=== PATIENT | male | born 1970 | race Caucasian/White ===

== ENCOUNTER 2020-03-28 10:58 | Emergency (ER) | payer OTHER ==
[~2020-03-28] VITALS: Ht 182.9 cm; Wt 74.8 kg
[2020-03-28 11:28] LABS: Source, Urine Clean Catch
[2020-03-28 11:32] LABS: Bilirubin, Urine Neg (Neg); Blood, Urine 1+ (Neg); Glucose Qualitative, Urine Neg (Neg); Ketones, Urine Neg (Neg); Leukocyte Esterase, Urine 3+ (Neg); Nitrite, Urine Neg (Neg); Protein, Urine Neg (Neg); Specific Gravity, Urine 1.005 (1.003-1.022); Urobilinogen, Urine NORM (Normal)
[2020-03-28 11:52] LABS: Appearance, Urine Hazy (Clear); Color, Urine Yellow (P-Yellow)
[2020-03-28 11:57] LABS: Bacteria Few /hpf; Red Blood Cells, Urine 0-2 /hpf (0-2); Squamous Epithelial Cells Rare /hpf (Few)
[2020-03-28] MEDS ORDERED: LEVFLO500 PO (12:48)
[2020-03-28] MEDS ORDERED: Norco 5-325 Ta1 EACH PO (12:49)
== END 2020-03-28 13:19 | disposition home or self-care (01) ==
LOC: ER 10:58
PROVIDERS: Emergency Medicine
DX: N45.1 Epididymitis (principal); K40.90 Unilateral inguinal hernia, without obstruction or gangrene, not specified as recurrent; F17.200 Nicotine dependence, unspecified, uncomplicated
CPT/HCPCS: 76870; 81001; 87086; 96372; 99284-25; J0696

== ENCOUNTER 2021-02-26 12:30 | Emergency (ER) | payer OTHER ==
[~2021-02-26] VITALS: Ht 180.3 cm; Wt 81.7 kg
[~2021-02-26 12:30] MED LIST: LEVFLO500 PO; Norco 5-325 Ta1 EACH PO
[2021-02-26] MEDS ORDERED: IBUP800 PO (14:13)
[2021-02-26] MEDS ORDERED: Norco 5-325 Ta1 EACH PO (14:13)
== END 2021-02-26 15:24 | disposition home or self-care (01) ==
LOC: ER 12:30
DX: S82.832A Other fracture of upper and lower end of left fibula, initial encounter for closed fracture (principal); F17.200 Nicotine dependence, unspecified, uncomplicated; W01.0XXA Fall on same level from slipping, tripping and stumbling without subsequent striking against object, initial encounter
CPT/HCPCS: 29515; 73610; 99283-25

== ENCOUNTER 2021-03-10 13:41 | Day surgery (SDC) | payer OTHER ==
[~2021-03-10] VITALS: Ht 180.3 cm; Wt 83.6 kg
[~2021-03-10 13:41] MED LIST changes: +IBUP800 PO
[2021-03-10] MEDS ORDERED: TRAM50 PO (14:04)
--- NOTE | 2021-03-10 16:18 | NUR ---
03/10/21 [id number] RIGO GUSTAFSON PT REQUESTS TO WATCH TV- TO DISTRACT HIM FROM THE PAIN.
== END 2021-03-10 16:50 | disposition home or self-care (01) ==
LOC: ORSCSDS 13:41
PROVIDERS: Orthopaedic Surgery
PROC: 0QSK04Z Reposition Left Fibula with Internal Fixation Device, Open Approach (ICD-10-PCS; principal; 2021-03-10 14:45)
DX: S82.62XA Displaced fracture of lateral malleolus of left fibula, initial encounter for closed fracture (principal); S93.422A Sprain of deltoid ligament of left ankle, initial encounter; F17.210 Nicotine dependence, cigarettes, uncomplicated
CPT/HCPCS: A9270; C1713; C1776; J0690; J1100; J1885; J2250; J2405; J2704; J2710; J2765; J3010